=== PATIENT | female | born 1950 | race Caucasian/White ===

== ENCOUNTER 2018-08-08 14:16 | Outpatient (CLI) | payer MEDICARE, BC ==
--- NOTE | 2018-08-08 16:39 | BD ---
Exam: DEXA Bone Density 08/08/18 INDICATION: Osteoporosis screening. FINDINGS: Lumbar Spine: BMD (g/cm2) T-Score: Z-Score: L1 0.861 -1.2 0.6 L2 0.885 -1.3 0.7 L3 0.862 -2.0 0.1 L4 0.881 -1.6 0.5 L1-L4 0.873 -1.6 0.4 Femoral Neck: 0.580 -2.4 -0.7 Total Femur: 0.787 -1.3 0.2 The FRAX WHO fracture risks assessment tool estimates a ten year fracture risk for this patient for a major osteoporotic fracture of 13%. For hip fracture is 2.9%. The bone mineral density of the left f emoral neck region is relatively stable to a comparison from [facility] dated 12/28/10 . IMPRESSION: Based on WHO criteria, the patient's bone mineral density remains osteopenia. The patient is at moder ate risk for fracture. The bone mineral density of the left femoral neck region is stable to a compar jasvir dated 12/28/10. POS: [facility]
== END 2018-08-08 14:17 | disposition home or self-care (01) ==
LOC: BICMAMMO 14:16
PROVIDERS: ATTEND Obstetrics & Gynecology
DX: Z12.31 Encounter for screening mammogram for malignant neoplasm of breast (principal); M81.0 Age-related osteoporosis without current pathological fracture; M85.89 Other specified disorders of bone density and structure, multiple sites; Z80.3 Family history of malignant neoplasm of breast; Z85.820 Personal history of malignant melanoma of skin
CPT/HCPCS: 77063; 77067; 77080

== ENCOUNTER 2020-07-30 11:21 | Outpatient (CLI) | payer MEDICARE ==
--- NOTE | 2020-07-30 12:29 | MMO ---
Bilateral MAMMO Bilat Screen [facility]. CLINICAL HISTORY: Patient is 70 years old and is seen for screening. The patient has a history of left Cyst Aspiration in 1999 and right Cyst Aspiration in 1998. VIEWS: The views performed were: bilateral craniocaudal with tomosynthesis and bilateral mediolateral oblique with tomosynthesis. FILMS COMPARED: The present examination has been compared to prior imaging studies performed at [facility] on 12/28/2010, 07/30/2013, 05/17/2016 and 08/08/2018. This study has been interpreted with the assistance of computer-aided detection. MAMMOGRAM FINDINGS: The breasts are heterogeneously dense, which could obscure a lesion on mammography. There is an equal density, oval mass measuring 9 millimeters with obscured margins seen in the outer region of the right breast. In the left breast, there are no suspicious masses, calcifications or areas of architectural distortion. IMPRESSION: MASS IN THE RIGHT BREAST REQUIRES ADDITIONAL EVALUATION. RECOMMEND DIAGNOSTIC MAMMOGRAM. ULTRASOUND MAY ALSO PROVE USEFUL AT RECALL. THE RESULTS OF THIS EXAM WERE SENT TO THE PATIENT. ACR BI-RADS Category 0 - Incomplete: Need additional imaging evaluation. [facility] will notify the patient of the need for additional imaging services. MAMMOGRAPHY NOTE: 1. A negative mammogram report should not delay a biopsy if a dominant of clinically suspicious mass is present. 2. Approximately 10% to 15% of breast cancers are not detected by mammography. 3. Adenosis and dense breasts may obscure an underlying neoplasm. Reported by: REUBEN LACKEY MD Electonically Signed: [id number]
== END 2020-07-30 11:22 | disposition home or self-care (01) ==
LOC: BICMAMMO 11:21
PROVIDERS: ATTEND Obstetrics & Gynecology
DX: Z12.31 Encounter for screening mammogram for malignant neoplasm of breast (principal)
CPT/HCPCS: 77063; 77067

== ENCOUNTER 2020-08-05 12:57 | Outpatient (CLI) | payer MEDICARE ==
--- NOTE | 2020-08-05 13:56 | MMO ---
Right Breast MAMMO Unilat Diag [facility]. CLINICAL HISTORY: Patient is 70 years old and is seen for additional evaluation requested from prior study. The patient has a history of left Cyst Aspiration in 1999 and right Cyst Aspiration in 1998. VIEWS: The views performed were: right craniocaudal spot compression with tomosynthesis; right mediolateral oblique spot compression with tomosynthesis; and right mediolateral with tomosynthesis. FILMS COMPARED: The present examination has been compared to prior imaging studies performed at [facility] on 05/17/2016, 08/08/2018, 07/30/2020 and 08/05/2020. This study has been interpreted with the assistance of computer-aided detection. MAMMOGRAM FINDINGS: The breast is heterogeneously dense, which could obscure a lesion on mammography. Additional views were performed. Right upper outer breast nodule persists and is a cyst on US. There are no suspicious masses, suspicious calcifications, or new areas of architectural distortion. IMPRESSION: THERE IS NO MAMMOGRAPHIC EVIDENCE OF MALIGNANCY. A ROUTINE FOLLOW-UP MAMMOGRAM IN 1 YEAR IS RECOMMENDED. THE RESULTS OF THIS EXAM WERE SENT TO THE PATIENT. ACR BI-RADS Category 2 - Benign finding MAMMOGRAPHY NOTE: 1. A negative mammogram report should not delay a biopsy if a dominant of clinically suspicious mass is present. 2. Approximately 10% to 15% of breast cancers are not detected by mammography. 3. Adenosis and dense breasts may obscure an underlying neoplasm. Reported by: CHERRY WISEMAN MD Electonically Signed: [id number]
--- NOTE | 2020-08-05 13:56 | ULT ---
RIGHT BREAST ULTRASOUND: Date: 08/05/2020 HISTORY: Abnormal mammogram, right breast mass. FINDINGS: Correlation made with mammograms of 07/30/2020 and today. Sonographic evaluation of the right upper outer breast demonstrates a 6.0 mm cyst at the 10 o'clock p osition, 3.0 cm from the nipple, corresponding to the mammographic finding. IMPRESSION: BI-RADS Category 2 - Benign findings. Return to annual mammographic screening. POS: OFF
== END 2020-08-05 12:58 | disposition home or self-care (01) ==
LOC: BICMAMMO 12:57
PROVIDERS: ATTEND Obstetrics & Gynecology
DX: N63.10 Unspecified lump in the right breast, unspecified quadrant (principal)
CPT/HCPCS: 76642; 77065; G0279

== ENCOUNTER 2021-12-03 12:59 | Outpatient (CLI) | payer MEDICARE, BC ==
[~2021-12-03 12:59] MED LIST: Iopamidol 370 76% 100 ML VIAL ONE
== END 2021-12-03 13:00 | disposition home or self-care (01) ==
LOC: CT 12:59
PROVIDERS: ATTEND Internal Medicine Cardiovascular Disease
DX: I71.2 Thoracic aortic aneurysm, without rupture (principal); K76.9 Liver disease, unspecified; I71.4 Abdominal aortic aneurysm, without rupture
CPT/HCPCS: 71275; 74174; 82565; Q9967

== ENCOUNTER 2021-12-08 09:26 | Outpatient (CLI) | payer MEDICARE, BC | END 2021-12-08 09:27 | disposition home or self-care (01) | LOC: BICMAMMO 09:26 | PROVIDERS: ATTEND Obstetrics & Gynecology | DX: Z12.31 Encounter for screening mammogram for malignant neoplasm of breast (principal); Z13.820 Encounter for screening for osteoporosis; M81.0 Age-related osteoporosis without current pathological fracture; M85.89 Other specified disorders of bone density and structure, multiple sites; Z80.3 Family history of malignant neoplasm of breast; Z85.820 Personal history of malignant melanoma of skin | CPT/HCPCS: 77063; 77067; 77080 ==

== ENCOUNTER 2022-01-27 07:56 | Outpatient (CLI) | payer MEDICARE, BC ==
[2022-01-27] MEDS ORDERED: Iopamidol 370 76% 100 ML VIAL ONE (14:21)
== END 2022-01-27 07:57 | disposition home or self-care (01) ==
LOC: CT 07:56
PROVIDERS: ATTEND Internal Medicine Cardiovascular Disease
DX: I71.2 Thoracic aortic aneurysm, without rupture (principal); K76.9 Liver disease, unspecified
CPT/HCPCS: 71275; 82565; Q9967

== ENCOUNTER 2022-08-22 17:30 | Outpatient (CLI) | payer MEDICARE, BC | END 2022-08-22 17:31 | disposition home or self-care (01) | LOC: SLEEPLAB 17:30 | PROVIDERS: ATTEND Family Medicine | DX: G47.10 Hypersomnia, unspecified (principal); R53.83 Other fatigue; R06.83 Snoring; G47.00 Insomnia, unspecified; E66.9 Obesity, unspecified; Z68.24 Body mass index [BMI] 24.0-24.9, adult | CPT/HCPCS: 95800 ==

== ENCOUNTER 2022-08-30 11:00 | Outpatient (CLI) | payer MEDICARE, BC | END 2022-08-30 11:01 | disposition home or self-care (01) | LOC: BICCT 11:00 | PROVIDERS: ATTEND Internal Medicine Cardiovascular Disease | DX: I77.810 Thoracic aortic ectasia (principal); I71.21 Aneurysm of the ascending aorta, without rupture | CPT/HCPCS: 71275; 82565 ==

== ENCOUNTER 2023-09-07 10:29 | Outpatient (CLI) | payer MEDICARE, BC | END 2023-09-07 10:30 | disposition home or self-care (01) | LOC: BICCT 10:29 | PROVIDERS: ATTEND Internal Medicine Cardiovascular Disease | DX: R53.83 Other fatigue (principal); I71.21 Aneurysm of the ascending aorta, without rupture | CPT/HCPCS: 71275; 82565 ==

== ENCOUNTER 2024-10-07 07:14 | Outpatient (CLI) | payer MEDICARE, BC | END 2024-10-07 07:15 | disposition home or self-care (01) | LOC: CT 07:14 | PROVIDERS: ATTEND Nurse Practitioner Family | DX: I50.32 Chronic diastolic (congestive) heart failure (principal); I71.21 Aneurysm of the ascending aorta, without rupture | CPT/HCPCS: 36415; 71275; 82565 ==

== ENCOUNTER 2025-09-01 15:28 | Outpatient (CLI) | payer MEDICARE, BC | END 2025-09-01 15:29 | disposition home or self-care (01) | LOC: BICMAMMO 15:28 | PROVIDERS: ATTEND Obstetrics & Gynecology | DX: Z12.31 Encounter for screening mammogram for malignant neoplasm of breast (principal); Z80.3 Family history of malignant neoplasm of breast; Z85.828 Personal history of other malignant neoplasm of skin | CPT/HCPCS: 77063; 77067 ==